=== PATIENT | male | born 1940 | race Caucasian/White ===

== ENCOUNTER → 2017-07-24 | Outpatient (CLI) | payer MEDICARE, OTHER ==
[~2017-07-24] MED LIST: ADVA100A INH; ALBU6.7H INH; CIPR500T2 PO; DICL50TA3 PO; PYRI200T4 PO
[2017-07-25 11:50] LABS: HEPATITIS A AB IGM NEGATIVE (NEGATIVE); HEPATITIS B CORE AB IGM NEGATIVE (NEGATIVE); HEPATITIS B SURFACE ANTIGEN NEGATIVE (NEGATIVE); HEPATITIS C AB IgG NEGATIVE (NEGATIVE)
== END ==
LOC: PLAB 12:15
DX: L43.9 Lichen planus, unspecified (principal)
CPT/HCPCS: 80074